=== PATIENT | female | born 1960 ===

== ENCOUNTER 2016-09-10 06:35 | Day surgery (SDC) | payer MEDICARE, MEDICAID ==
[2016-08-12 10:08] VITALS: BMI 24.0
[2016-09-10] MEDS ORDERED: ceFAZolin IV 1 gm in Dextrose 1 GM/50 ML BAG IVPB ONE (06:43)
[2016-09-10] MEDS ORDERED: Acetaminophen-Codeine 300/30 mg Tab PO PRN (07:45)
[2016-09-10] MEDS ORDERED: Dextrose 5%/0.45% NS 1,000 ML IV SCH (07:45)
[2016-09-10] MEDS ORDERED: Midazolam 2 MG/2 ML VIAL ONE (09:20)
[2016-09-10] MEDS ORDERED: Propofol 10 mg/ml Inj (20 ML) ONE (09:20)
[2016-09-10] MEDS ORDERED: Lactated Ringer's 1,000 ML IV ONE ×2 (09:20→11:46)
[2016-09-10] MEDS ORDERED: Rocuronium 10 mg/ml (5 ml) ONE (09:21)
[2016-09-10] MEDS ORDERED: Phenylephrine 10 mg/ml Inj ONE (09:23)
[2016-09-10] MEDS ORDERED: Neostigmine Methylsulfate 3mg/3ml Syringe IV ONE (11:35)
[2016-09-10] MEDS ORDERED: HYDROmorphone 1 mg/ml ISec ONE (11:37)
[2016-09-10 12:05] VITALS: O2SAT 100
--- NOTE | 2016-09-10 12:21 | OP ---
PROCEDURE DATE: 09/10/2016 PREOPERATIVE DIAGNOSES: Deviated septum, large turbinates, sinusitis. POSTOPERATIVE DIAGNOSES: Deviated septum, large turbinates, sinusitis. PROCEDURE: Endoscopic bilateral maxillary antrostomy, endoscopic bilateral ethmoidectomy, endoscopic bilateral inferior turbinate reduction and septoplasty. SIGNIFICANT FINDINGS: Deviated septum, large turbinates, sinusitis. DESCRIPTION OF PROCEDURE: The patient was brought in the room, placed in supine position. Anesthesia was initiated through an ET tube. Afrin-soaked pledgets were inserted through the nasal cavity and remained there for at least 5 minutes and removed. Navigation was set up and used throughout the case in order to ensure that the skull base and orbit were not entered. The patient was draped in the usual manner. A [place]'s incision was made on the left septum and a mucoperichondrial flap was raised. A vertical incision was made in the cartilage leaving a 1.5 cm anterior and superior strut and then a mucoperichondrial flap was raised on the other side. Deviated portion of the cartilage and bone were removed using forceps and chisel. The 2 flaps were sutured together using quilting suture which was also used to close the [place]' s incision. Next, a 0 degree scope was inserted in the nasal cavity. The inferior turbinates were noted to be enlarged and reduced using scissors, going from an inferior to superior, anterior to posterior direction on both sides, first on the left, then on the right. Bleeding was controlled using suction cautery. Next, attention was turned to the left. The middle turbinate was medialized, uncinate process was medialized using a [place] elevator and removed using forceps. Ethmoid bulla was entered using a debrider going posteriorly to the basal lamella, then anteriorly and superiorly until the ethmoid bulla was removed. The basal lamella was entered. Posterior ethmoid cells were entered and opened. Skull base was identified and followed anteriorly all the way to the area of the anterior ethmoid air cells. Next, curved suction hooked up to navigation was used to locate the maxillary antrum, which was noted to be stenosed and opened using forceps. Attention was turned to the other side. The middle turbinate was medialized, uncinate process was medialized using a [place] elevator and removed using forceps. A debrider was used to enter the ethmoid bulla inferomedially going posteriorly to the basal lamella, then dissection was continued anteriorly until the ethmoid bulla was removed. The basal lamella was entered. Posterior ethmoid cells were entered and opened. Skull base was identified and followed anteriorly, all the way to the area of the anterior ethmoid air cells. Curved suction hooked up to navigation was used to locate the maxillary antrum which was noted to be stenosed and opened using forceps. Bleeding was controlled using Afrin-soaked pledgets on both sides. Stents were placed. Splints were placed. The patient was taken off anesthesia and taken to recovery room in stable manner. Anant Gibson MD cc: [id number] TT: 09/10/2016 12:20:52 nayeli CALDWELL
[2016-09-10 13:06] VITALS: BP 117/64; PULSE 94; RESP 18; TEMP 97.2
== END 2016-09-10 14:03 | disposition home or self-care (01) ==
LOC: C.SDS 06:35
PROVIDERS: ATTEND Otolaryngology
DX: J34.2 Deviated nasal septum (principal); J34.3 Hypertrophy of nasal turbinates; J32.0 Chronic maxillary sinusitis
CPT/HCPCS: 30630; 30802; 31255; 31256; 88304; J0690; J1170; J1885; J2250; J2370; J2405; J2704; J2710; J3010; J7120

== ENCOUNTER 2016-09-10 22:35 | Observation (INO) | payer MEDICARE, MEDICAID ==
[2016-09-10 22:36] VITALS: BMI 24.0
[2016-09-10 23:19] LABS: BASO # 0.1 K/uL (0.0-0.2); BASO % 0.6 % (0.0-2.0); EOS % 0.1 % (0.0-4.0); HEMATOCRIT 33.5 % (34.0-47.0); LYMPH # 1.4 K/uL (1.0-4.3); LYMPH % 10.3 % (20.0-40.0); MEAN CELL VOLUME 81.4 fL (81.0-99.0); MEAN CORPUSCULAR HEMOGLOBIN 26.6 pg (27.0-31.0); MEAN CORPUSCULAR HGB CONC 32.7 g/dL (33.0-37.0); MEAN PLATELET VOLUME 8.8 fL (7.2-11.7); MONO # 0.3 K/uL (0.0-0.8); NRBC % 0.2 % (0.0-2.0); RED CELL DISTRIBUTION WIDTH 15.4 % (11.5-14.5); WHITE BLOOD COUNT 13.7 K/uL (4.8-10.8)
[2016-09-10 23:27] LABS: INR 1.1
[2016-09-10 23:32] LABS: CHLORIDE 102 mmol/L (98-107)
[2016-09-10 23:33] LABS: POTASSIUM 4.2 mmol/L (3.6-5.2); SODIUM 139 mmol/L (132-148)
[2016-09-10 23:35] LABS: ALB/GLOB RATIO 1.3 (1.0-2.1); AST/SGOT 31 U/L (14-36); BILIRUBIN,TOTAL 0.7 mg/dL (0.2-1.3); BLOOD UREA NITROGEN 15 mg/dL (7-17); CARBON DIOXIDE 28 mmol/L (22-30); GFR AFRICAN-AMERICAN > 60; TOTAL PROTEIN 7.6 g/dL (6.3-8.3)
[2016-09-10 23:36] LABS: ALKALINE PHOSPHATASE 87 U/L (38-126); ALT/SGPT 30 U/L (9-52); CALCIUM 9.3 mg/dl (8.6-10.4); GLUCOSE,RANDOM 125 mg/dL (65-105)
--- NOTE | 2016-09-10 23:47 | C.PDOC ---
History Of Present Illness Pt had nasal surgery by Dr. Gibson today. Pt states that she started bleeding about 2 hours ago and would not stop, so she called 911. Time Seen by Provider: 09/10/16 22:53 Chief Complaint (Nursing): ENT Problem History Per: Patient, EMS Onset/Duration Of Symptoms: Hrs (2) Current Symptoms Are (Timing): Still Present Location Of Bleeding: Left Nare Symptoms Have Been: Continuous Severity: Moderate Anticoagulant/Antiplatlet Use?: No Recent Aspirin Use: No Additional History Per: Prior Records Past Medical History Reviewed: Historical Data, Nursing Documentation, Vital Signs Vital Signs: Last Vital Signs Temp 97.8 F 09/10/16 22:44 Pulse 95 H 09/10/16 22:44 Resp 16 09/10/16 22:44 BP 128/66 09/10/16 22:44 Pulse Ox 92 L 09/10/16 23:48 - Medical History PMH: Anxiety, Arthritis, Colonic Polyps, Depression, HTN, Multiple Sclerosis, Pneumonia Surgical History: Endoscopy - [facility] Procedures CYSTOSCOPY NEC (09/17/14) EXERCISE TRMT MUSCULOSK LOW BACK/LE W ASSIST EQUIP (01/05/16) GAIT TRAINING/AMBULAT TREATMENT USING ASSIST EQUIPMENT (01/05/16) HOME MANAGEMENT TREATMENT USING ASSIST EQUIPMENT (02/05/16) INSERTION OF INFUSION DEV INTO SUP VENA CAVA, PERC APPROACH (01/02/16) OCCUPATIONAL THERAPY (09/21/14) PHYSICAL THERAPY NEC (09/21/14) RECREATIONAL THERAPY (09/21/14) THERAPEUTIC EXERCISE TREATMENT OF MUSCULOSK LOW BACK/LE (02/05/16) URETHRAL DILATION (09/17/14) Family History: States: Unknown Family Hx - Social History Hx Tobacco Use: No Hx Alcohol Use: No Hx Substance Use: No - Immunization History Hx Tetanus Toxoid Vaccination: No Hx Influenza Vaccination: No Hx Pneumococcal Vaccination: No Review Of Systems Except As Marked, All Systems Reviewed And Found Negative. Constitutional: Negative for: Fever ENT: Positive for: Nose Pain Cardiovascular: Negative for: Chest Pain Respiratory: Negative for: Shortness of Breath Gastrointestinal: Negative for: Vomiting, Abdominal Pain Musculoskeletal: Negative for: Neck Pain Skin: Negative for: Rash Neurological: Negative for: Weakness, Numbness, Seizures, Altered Mental Status Physical Exam - Physical Exam Appears: No Acute Distress, Other (Anxious. Crying.) Skin: Normal Color, Warm, Dry Head: Atraumatic Eye(s): bilateral: PERRL, EOMI Nose: Epistaxis (left nare has blood clot and is dripping blood.) Throat: Other (trace amount of blood in pharanx) Neck: Normal ROM, Supple Cardiovascular: Rhythm Regular Respiratory: Normal Breath Sounds, No Accessory Muscle Use Gastrointestinal/Abdominal: Soft, No Tenderness Extremity: Normal ROM Neurological/Psych: Oriented x3, Normal Motor, Normal Sensation ED Course And Treatment - Laboratory Results Result Diagrams: 09/10/16 23:15 09/10/16 23:15 ECG: Interpreted By Me, Viewed By Me ECG Rhythm: Sinus Rhythm, R BBB ECG Interpretation: No Changes From Prior Rate From EC O2 Sat by Pulse Oximetry: 92 - Radiology CXR: Interpreted by Me, Viewed By Me CXR Interpretation: Yes: No Acute Disease Disposition Discussed With : Anant Gibson Comment: He wants to take pt back to OR tonight. Doctor Will See Patient In The: Hospital Counseled Patient/Family Regarding: Studies Performed, Diagnosis - Disposition Disposition: HOSPITALIZED Disposition Time: 23:56 Condition: FAIR - Clinical Impression Clinical Impression: Epistaxis
[2016-09-11] MEDS ORDERED: Propofol 10 mg/ml Inj (20 ML) ONE ×2 (00:13→00:43)
[2016-09-11] MEDS ORDERED: Midazolam 2 MG/2 ML VIAL ONE (00:13)
[2016-09-11] MEDS ORDERED: Phenylephrine 10 mg/ml Inj ONE (00:16)
[2016-09-11] MEDS ORDERED: HYDROmorphone 0.5 mg/0.5 ml ISec IVP PRN (00:16)
[2016-09-11] MEDS ORDERED: Oxymetazoline 0.05% Nasal Spray (30 ml) NS ONE (00:22)
[2016-09-11] MEDS ORDERED: Lactated Ringer's 1,000 ML IV ONE (00:27)
[2016-09-11] MEDS ORDERED: Acetaminophen-Codeine 300/30 mg Tab PO PRN (01:19)
[2016-09-11] MEDS: Dextrose 5%/0.45% NS 1,000 ML IV SCH ×2 (03:12→12:00)
[2016-09-11] MEDS: ceFAZolin 1 gm FROZEN Premix 1 GM/50 ML ML IVPB SCH ×2 (07:02→13:57)
--- NOTE | 2016-09-11 08:01 | CP.PCM.CON ---
<Olena Cabrera - Last Filed: 09/11/16 10:38> History of Present Illness - History of Present Illness History of Present Illness: Medicine Consult Note Patient is a 56 year old female with PMHx of MS who was admitted under Dr Gibson' s service on 09/10/16 for epistaxis. The patient had a septoplasty on 09/10 to repair a deviated septum. Her nasal passageways were packed and patient was unable to breath through her nose immediately after the procedure. Medicine service was consulted after patient began to desaturate on room air with SpO2 < 90%. The patient was placed on 2L NC and her SpO2 increased to normal. Chest X -ray was performed and reviewed which did not show any acute findings. Patient is asymptomatic and states that she feels well. She admits that due to her MS she often "forgets to breath and holds my breath." She denies fever, chills, nausea, vomiting, chest pain, palpitations, cough, shortness of breath, difficulty breathing, dizziness, lightheadedness, swelling of extremities, headache, and focal weakness. PMHx: Multiple sclerosis, hearing deficit b/l, depression Family Hx: Mother had MS Surgical Hx: Septoplasty Social Hx: Denies ETOH, tobacco, and illicit drug use Allergies: NKDA Review of Systems - Constitutional Constitutional: As Per HPI. absent: Headache, Weakness - EENT Eyes: As Per HPI Ears: As Per HPI. absent: Disequilibrium Nose/Mouth/Throat: As Per HPI, Epistaxis - Cardiovascular Cardiovascular: As Per HPI. absent: Chest Pain, Dyspnea, Leg Edema, Palpitations, Pedal Edema, Rapid Heart Rate - Respiratory Respiratory: As Per HPI. absent: Cough, Dyspnea, Dyspnea on Exertion, Wheezing , Chest Congestion - Gastrointestinal Gastrointestinal: As Per HPI. absent: Abdominal Pain, Nausea, Vomiting - Genitourinary Genitourinary: As Per HPI. absent: Change in Urinary Stream - Musculoskeletal Musculoskeletal: As Per HPI. absent: Numbness, Tingling - Integumentary Integumentary: As Per HPI. absent: Rash - Neurological Neurological: As Per HPI Past Patient History - Infectious Disease Hx of Infectious Diseases: None - Tetanus Immunizations Tetanus Immunization: Unknown - Past Medical History & Family History Past Medical History?: Yes - Past Social History Smoking Status: Former Smoker - CARDIAC Hx Hypertension: Yes - PULMONARY Hx Pneumonia: Yes - NEUROLOGICAL Hx Multiple Sclerosis: Yes - HEENT Hx HEENT Problems: Yes Hx Deafness: Yes ([place] on both ears) Other/Comment: Blurred vision - INTEGUMENTARY Hx Dermatological Problems: Yes Hx Eczema: Yes Hx Psoriasis: Yes - MUSCULOSKELETAL/RHEUMATOLOGICAL Hx Arthritis: Yes Hx Falls: No - GASTROINTESTINAL Hx Gastrointestinal Disorders: Yes - GENITOURINARY/GYNECOLOGICAL Hx Genitourinary Disorders: Yes Hx Urinary Tract Infection: Yes (treated 5x in last 5 months) Other/Comment: recurrent UTI - PSYCHIATRIC Hx Anxiety: Yes Hx Depression: Yes Hx Substance Use: No - SURGICAL HISTORY Hx Surgeries: Yes Other/Comment: cystoscopy (09/20/14). Baclofen pump insertion - ANESTHESIA Hx Anesthesia: Yes Hx Anesthesia Reactions: No Hx Malignant Hyperthermia: No Meds Allergies/Adverse Reactions: Allergies Allergy/AdvReac Type Severity Reaction Status Date / Time No Known Allergies Allergy Verified 09/10/16 22:51 - Medications Medications: Current Medications Acetaminophen/Codeine Phosphate (Tylenol/Codeine 300 Mg/30 Mg) 2 ea PO Q6 PRN PRN Reason: Pain, moderate (4-7) Last Admin: 09/11/16 03:10 Dose: 2 ea Hydromorphone HCl (Dilaudid) 0.5 mg IVP Q15M PRN PRN Reason: Pain, severe (8-10) Last Admin: 09/11/16 01:43 Dose: 0.5 mg Dextrose/Sodium Chloride (Dextrose 5%/0.45% Ns 1000 Ml) 1,000 mls @ 100 mls/hr IV .Q10H VASILIY Last Admin: 09/11/16 03:12 Dose: 100 mls/hr Cefazolin Sodium (Ancef) 1 gm in 50 mls @ 100 mls/hr IVPB Q8H VASILIY Last Admin: 09/11/16 07:02 Dose: 100 mls/hr Physical Exam - Constitutional Appears: Non-toxic, No Acute Distress - Head Exam Head Exam: ATRAUMATIC, NORMOCEPHALIC - Eye Exam Eye Exam: EOMI, Normal appearance - ENT Exam ENT Exam: Mucous Membranes Dry Additional comments: dry blood in nasal passages, no active epistaxis - Neck Exam Neck exam: Positive for: Full Rom, Normal Inspection. Negative for: Lymphadenopathy - Respiratory Exam Respiratory Exam: Clear to Auscultation Bilateral, NORMAL BREATHING PATTERN. absent: Accessory Muscle Use, Rhonchi, Wheezes, Respiratory Distress, Stridor - Cardiovascular Exam Cardiovascular Exam: REGULAR RHYTHM, +S1, +S2. absent: Bradycardia, Irregular Rhythm, Systolic Murmur - GI/Abdominal Exam GI & Abdominal Exam: Normal Bowel Sounds, Soft. absent: Tenderness - Extremities Exam Extremities exam: Positive for: normal inspection, pedal pulses present. Negative for: pedal edema, tenderness - Neurological Exam Neurological exam: Alert, CN II-XII Intact, Oriented x3 - Psychiatric Exam Psychiatric exam: Normal Affect, Normal Mood - Skin Skin Exam: Dry, Intact, Normal Color, Warm Results - Vital Signs Recent Vital Signs: Last Vital Signs Temp 98.3 F 09/11/16 02:10 Pulse 68 09/11/16 02:10 Resp 7 L 09/11/16 02:10 BP 137/67 09/11/16 02:10 Pulse Ox 96 09/11/16 02:10 - Labs Result Diagrams: 09/10/16 23:15 09/10/16 23:15 Assessment & Plan (1) Oxygen desaturation Assessment and Plan: - Likely secondary to nasal obstruction and underlying MS - Increased SpO2 on 2L NC O2 - CXR- no active pulmonary disease - 07/18/16 ECHO reviewed: LV EF >50% - Discussed with attending Dr Amador. Patient asymptomatic. No acute medical intervention at this time, patient medically stable for discharge home with instructions to follow up with Dr Gibson Status: Acute <Leon Amador P - Last Filed: 09/17/16 05:47> Results - Vital Signs Recent Vital Signs: Last Vital Signs Temp 98.6 F 09/11/16 15:04 Pulse 67 09/11/16 15:04 Resp 20 09/11/16 15:04 BP 124/69 09/11/16 15:04 Pulse Ox 94 L 09/11/16 15:04 - Labs Result Diagrams: 09/10/16 23:15 09/10/16 23:15 Attending/Attestation - Attestation I have personally seen and examined this patient.: Yes I have fully participated in the care of the patient.: Yes I have reviewed all pertinent clinical information: Yes
--- NOTE | 2016-09-11 08:43 | RAD ---
HISTORY: Nose bleed. Going to OR. COMPARISON: 06/28/2016 FINDINGS: LUNGS: The lungs are well inflated and clear. PLEURA: No significant pleural effusion identified, no pneumothorax apparent. CARDIOVASCULAR: Normal. OSSEOUS STRUCTURES: No significant abnormalities. VISUALIZED UPPER ABDOMEN: Normal. OTHER FINDINGS: None. IMPRESSION: No active pulmonary disease.
--- NOTE | 2016-09-11 09:43 | OP ---
PROCEDURE DATE: 09/11/2016 PREOPERATIVE DIAGNOSES: Left epistaxis. POSTOPERATIVE DIAGNOSIS: Left epistaxis. PROCEDURE: Endoscopic cauterization of left epistaxis. SIGNIFICANT FINDINGS: Left epistaxis. DESCRIPTION OF PROCEDURE: The patient was brought in the room, placed in a supine position. Anesthesia was initiated through an ET tube. Splints and stents were removed from the nose. Afrin-soaked pledgets were inserted into the nasal cavity and remained there for at least 5 minutes and removed. The patient was draped in the usual manner. A 0 degree scope was inserted into the nasal cavity. Possible bleeding area was noted along the inferior turbinate, in the area of the sphenopalatine artery. The area was cauterized. Next, the middle turbinate was medialized and the ethmoid area was brought into view using the scope. Bleeding was noted coming from the lateral nasal wall. Suction cautery was used to control the bleeding at that site. At that point, bleeding was noted to have been controlled. The scope was removed. Stents were placed. Splints were placed. The patient was taken off anesthesia and taken to recovery room in stable manner. Anant Gibson MD cc: [id number] TT: 09/11/2016 09:43:19 naya CALDWELL
[2016-09-11 17:05] VITALS: BP 124/69; PULSE 67; RESP 20; TEMP 98.6; O2SAT 94
== END 2016-09-11 17:30 | disposition home or self-care (01) ==
LOC: C.ER 22:35 → C.SDS 09-11 00:05 → C.3T 09-11 01:17
PROVIDERS: ADMIT Otolaryngology; ATTEND Otolaryngology
DX: R04.0 Epistaxis (principal); J34.2 Deviated nasal septum; I10 Essential (primary) hypertension; G35 Multiple sclerosis
CPT/HCPCS: 31238; 71010; 80053; 85025; 85610; 85730; 86850; 86900; G0378; J0690; J1170; J2001; J2250; J2370; J2704; J3010; J7042; J7120

== ENCOUNTER 2017-10-31 07:18 | Day surgery (SDC) | payer MEDICARE, MEDICAID ==
[2017-01-14 16:52] VITALS: BMI 24.0
[2017-10-31] MEDS ORDERED: Propofol 10 mg/ml Inj (20 ML) ONE (08:54)
[2017-10-31] MEDS ORDERED: Midazolam 2 MG/2 ML VIAL ONE (08:54)
[2017-10-31 09:46] VITALS: TEMP 97.5; O2SAT 100
[2017-10-31 10:35] VITALS: BP 149/70; PULSE 62; RESP 16
== END 2017-10-31 11:25 | disposition home or self-care (01) ==
LOC: C.ENDO 07:18
PROVIDERS: ATTEND Internal Medicine Gastroenterology
DX: R10.13 Epigastric pain (principal); K29.70 Gastritis, unspecified, without bleeding; Z12.11 Encounter for screening for malignant neoplasm of colon; D12.0 Benign neoplasm of cecum; D12.7 Benign neoplasm of rectosigmoid junction; D12.3 Benign neoplasm of transverse colon; K64.8 Other hemorrhoids
CPT/HCPCS: 43239; 45380; 45385; 88305; J2001; J2250; J2704; J7040

== ENCOUNTER 2017-12-08 04:34 | Emergency (ER) | payer MEDICARE, MEDICAID ==
[2017-12-08 04:35] VITALS: BMI 24.0
[2017-12-08 05:05] VITALS: TEMP 98.1
--- NOTE | 2017-12-08 05:54 | C.PDOC ---
History Of Present Illness 57yo female with history of multiple sclerosis, comes to ER with complaints of mid back pain, radiating to her lower back. She reports taking Motrin and Tylenol with no relief of symptoms. She denies any trauma, injury, weakness, numbness, bowel/bladder dysfunction and offers no additional medical complaints. Time Seen by Provider: 12/08/17 05:06 Chief Complaint (Nursing): Back Pain History Per: Patient History/Exam Limitations: no limitations Current Symptoms Are (Timing): Still Present Quality Of Discomfort: "Pain" Previous Symptoms: Chronic Pain Additional History Per: Patient Past Medical History Reviewed: Historical Data, Nursing Documentation, Vital Signs Vital Signs: Last Vital Signs Temp 98.1 F 12/08/17 04:59 Pulse 63 12/08/17 04:59 Resp 20 12/08/17 04:59 BP 164/71 H 12/08/17 04:59 Pulse Ox 95 12/08/17 05:54 - Medical History PMH: Anxiety, Arthritis, Colonic Polyps, Depression, Gastritis, HTN, Multiple Sclerosis, Pneumonia, Sleep Apnea Denies: Chronic Kidney Disease Surgical History: Endoscopy - [facility] Procedures CYSTOSCOPY NEC (09/17/14) EXERCISE TRMT MUSCULOSK LOW BACK/LE W ASSIST EQUIP (01/05/16) GAIT TRAINING/AMBULAT TREATMENT USING ASSIST EQUIPMENT (01/05/16) HOME MANAGEMENT TREATMENT USING ASSIST EQUIPMENT (02/05/16) INSERTION OF INFUSION DEV INTO SUP VENA CAVA, PERC APPROACH (01/02/16) OCCUPATIONAL THERAPY (09/21/14) PHYSICAL THERAPY NEC (09/21/14) RECREATIONAL THERAPY (09/21/14) THERAPEUTIC EXERCISE TREATMENT OF MUSCULOSK LOW BACK/LE (02/05/16) URETHRAL DILATION (09/17/14) Family History: States: No Known Family Hx - Social History Hx Tobacco Use: No Hx Alcohol Use: No Hx Substance Use: No - Immunization History Hx Tetanus Toxoid Vaccination: No Hx Influenza Vaccination: No Hx Pneumococcal Vaccination: No Review Of Systems Constitutional: Negative for: Fever, Chills Cardiovascular: Negative for: Chest Pain Respiratory: Negative for: Shortness of Breath Musculoskeletal: Positive for: Back Pain Neurological: Negative for: Weakness, Numbness Physical Exam - Physical Exam Appears: Non-toxic, No Acute Distress Skin: Normal Color Head: Normacephalic Eye(s): bilateral: Normal Inspection Oral Mucosa: Moist Neck: Normal ROM, Supple Chest: Symmetrical Cardiovascular: Rhythm Regular Respiratory: Normal Breath Sounds, No Rales, No Rhonchi, No Wheezing Gastrointestinal/Abdominal: Soft, No Tenderness Back: Normal Inspection, No CVA Tenderness, No Vertebral Tenderness, No Paraspinal Tenderness Extremity: Normal ROM, No Tenderness, No Pedal Edema, No Calf Tenderness, Deformity (chronic deformity of feet), No Swelling Neurological/Psych: Oriented x3, Normal Motor, Normal Sensation Gait: Unable To Assess ED Course And Treatment O2 Sat by Pulse Oximetry: 95 (RA) Pulse Ox Interpretation: Normal Progress Note: Patient requesting CXR as her symptoms this time are similar to previous when she was diagnosed with pneumonia. Pt reportsnow that she has a baclofen pen inserted under her skin to lower abdomen, still in pain,feels anxious and insomnia- toradol IM and xanaxPO given as well as lactulose as requested by pt fpr constipation. will s/o REHAN mo to reeval. Toradol 30mg IM given Disposition - Disposition Disposition Time: 07:15 Condition: STABLE Forms: [employer] (Dominican) - Clinical Impression Clinical Impression: Low back pain - PA / RESIDENT CARE AID / Resident Statement MD/DO has reviewed & agrees with the documentation as recorded. - Scribe Statement The provider has reviewed the documentation as recorded by the Deedee Theodore Provider Attestation: All medical record entries made by the Ijeomaibnick were at my direction and personally dictated by me. I have reviewed the chart and agree that the record accurately reflects my personal performance of the history, physical exam, medical decision making, and the department course for this patient. I have also personally directed, reviewed, and agree with the discharge instructions and disposition. Physician Patient Turnover Patient Signed Over To: Jenny Mo Handoff Comments: reevalfor pain management or admission
[2017-12-08] MEDS ORDERED: Oxycodone/Acetaminophen 5/325 mg Tab ONE (07:39)
[2017-12-08] MEDS: Oxycodone/Acetaminophen 5/325 mg Tab PO STA (07:39)
--- NOTE | 2017-12-08 08:46 | RAD ---
Date of service: 12/08/2017 PROCEDURE: CHEST RADIOGRAPH, 1 VIEW HISTORY: MID BACK PAIN, H/O PNA COMPARISON: 09/10/2016. FINDINGS: LUNGS: The lungs are well inflated and clear. PLEURA: No pneumothorax or pleural fluid seen. CARDIOVASCULAR: Normal. OSSEOUS STRUCTURES: No significant abnormalities. VISUALIZED UPPER ABDOMEN: Normal. OTHER FINDINGS: None. IMPRESSION: No active pulmonary disease.
[2017-12-08 10:07] VITALS: BP 130/78; PULSE 78; RESP 20; O2SAT 98
== END 2017-12-08 09:30 | disposition home or self-care (01) ==
LOC: C.ER 04:34
DX: M54.5 Low back pain (principal); I10 Essential (primary) hypertension; G35 Multiple sclerosis; Z87.891 Personal history of nicotine dependence
CPT/HCPCS: 71045; 96372; 99284; J1885

== ENCOUNTER 2018-09-03 09:09 | Outpatient (CLI) | payer MEDICARE, MEDICAID | END 2018-09-03 09:10 | disposition home or self-care (01) | LOC: C.RADH 09:09 | DX: R06.02 Shortness of breath (principal); J98.11 Atelectasis ==